=== PATIENT | male | born 1965 | race Caucasian/White ===

== ENCOUNTER 2023-07-31 17:40 | Emergency (ER) | payer OTHER, SELFPAY ==
[2023-07-31 17:44] VITALS: BP 118/93; BMI 26.5
[2023-07-31 17:54] LABS: % Basophils 0.1 % (0-2); % Eosinophils 0.6 % (0-6); % Immature Granulocytes 0.3 % (0-0.5); % Lymphocytes 9.2 % (20.5-51.1); % Monocytes 4.9 % (1.7-9.3); % Neutrophils 84.9 % (42.2-75.2); Absolute Eosinophils 0.1 10^3/uL (0-0.7); Absolute Monocytes 0.5 10^3/uL (0.1-0.6); Absolute Neutrophils 9.2 10^3/uL (1.4-6.5); Hematocrit 49.3 % (39.0-52.0); Hemoglobin 17.7 g/dL (13.0-18.0); Mean Corp Hgb Conc. 35.9 g/dL (33.0-37.0); Mean Corpuscular Hgb 32.4 pg (27.0-31.0); Mean Corpuscular Volume 90.1 fL (80.0-94.0); Mean Platelet Volume 9.5 fL (7.4-10.4); Nucleated Red Blood Cells % 0 % (-); Platelet Count 202 10^3/uL (130-400); Red Blood Cell Count 5.47 10^6/uL (4.70-6.10); Red Cell Dist. Width 12.7 % (11.5-14.5); White Blood Cell Count 10.9 10^3/uL (4.8-10.8)
[2023-07-31 18:07] LABS: ALT (SGPT) 30 U/L (0-50); AST (SGOT) 32 U/L (17-59); Albumin 5.3 g/dl (3.5-5.0); Alkaline Phosphatase 57 U/L (38-126); Blood Urea Nitrogen 16 mg/dl (9-20); Carbon Dioxide 29 mmol/L (22-30); Chloride 101 mmol/L (98-107); Estimated Creatinine Clearance 76 ml/min; Glucose 138 mg/dl (70-99); Lipase 627 U/L (23-300); Potassium 4.2 mmol/L (3.5-5.1); Sodium 141 mmol/L (135-145); Total Bilirubin 1.1 mg/dl (0.2-1.3); Total Protein 7.7 g/dl (6.3-8.2); eGFR > 60.00
[2023-07-31] MEDS: NSS 1000 IV ×2 (18:43→23:08)
--- NOTE | 2023-07-31 20:34 | ED.GENMED ---
History of Present Illness
<Akhil Sanders MD - Last Filed: 07/31/23 23:02>
General
Chief Complaint: Fainting Sensation
Source: patient
Exam Limitations: none
Time Seen by Provider: 07/31/23 19:36
Travel History
Have you had any contact with someone who has COVID-19?: No
Do you have any symptoms of coronavirus? Fever > 100 degrees, chills, cough, shortness of breath, sore throat, loss of taste or smell, muscle aches, or headache?: No
History of Present Illness
History of Present Illness:
58-year-old male became nauseous this morning. While driving became lightheaded sweaty and near syncope. Called 911. Patient was going to sign off but then had a recurring episode of nausea and near syncope. No abdominal pain no significant
headache no chest pain or shortness of breath. Patient has had ongoing diarrhea watery in nature throughout the day. No blood or mucus. No abdominal pain.
Past History
<Akhil Sanders MD - Last Filed: 07/31/23 23:02>
Past History
ED Past Medical History: None
Phy Exam
<Akhil Sanders MD - Last Filed: 07/31/23 23:02>
Physical Exam
Physical Exam:
GENERAL: Alert and oriented in no apparent distress
EYE: Orbits normal.
NECK: Supple, no significant adenopathy.
ENT: Pharynx without erythema
CARDIAC: Regular rate and rhythm without any obvious murmurs.
LUNGS: Clear breath sounds,normal
ABDOMEN: Soft, without focal tenderness or distention
NEUROLOGICAL: Alert and oriented , grossly non-focal
SKIN: Warm and dry, no rash or lesion, no discoloration, skin intact.
MUSCULOSKELETAL: No edema,no deformity.Good color
PSYCH: Normal and appropriate interaction.
Course
<Akhil Sanders MD - Last Filed: 07/31/23 23:02>
Orders/Labs/Results
Orders:
Orders
07/31/23 17:43
Electrocardiogram (*1) Urgent
Reason for Study: Chest Pain
EKG- Treatment ONCE
07/31/23 17:48
Complete Blood Count/With Diff Urgent
Comprehensive Metabolic Panel Urgent
Lipase Urgent
07/31/23 18:45
0.9% Sodium Chloride 1000 ml [Nss] 1,000 ml IV 1,000 mls/hr
07/31/23 19:54
CT Abd/Pel (IV only)-DH only Urgent
Comment:
Reason For Exam: Nausea vomiting syncope elevated lipase
IV Insert/Care/Rem.- Treatment PRN
07/31/23 20:43
Ketorolac [Toradol] 15 mg IV NOW STA
07/31/23 21:41
STOOL [C difficile Antigen & Toxins] Urgent
ERIKA Source: Feces/Stool
Specimen Description:
Date Specimen was Collected: 07/31/23
Time Specimen was Collected: 21:40
Stool Culture Urgent
ERIKA Source: Feces/Stool
Specimen Description:
Date Specimen was Collected: 07/31/23
Time Specimen was Collected: 21:40
07/31/23 22:58
0.9% Sodium Chloride 1000 ml [Nss] 1,000 ml IV BOLUS
Iohexol [Omnipaque] See Protocol PO NOW STA
07/31/23 23:16
Ondansetron Injectable [Zofran] 4 mg .ROUTE .STK-MED ONE
07/31/23 23:17
Ondansetron Injectable [Zofran] 4 mg IV NOW STA
08/01/23 01:00
CT Abd/pel (oral only)-[facility] Only Urgent
Reason For Exam: Hepatic flexure narrowing by CT. Delayed imaging
08/01/23 01:41
Ondansetron Injectable [Zofran] 4 mg .ROUTE .STK-MED ONE
Ondansetron Injectable [Zofran] 4 mg IV NOW STA
Abnormal Lab Results
07/31/23
17:48
WBC 10.9 H 10^3/uL
(4.8-10.8)
MCH 32.4 H pg
(27.0-31.0)
Absolute Neuts (auto) 9.2 H 10^3/uL
(1.4-6.5)
Absolute Lymphs (auto) 1.0 L 10^3/uL
(1.2-3.4)
Neutrophils % 84.9 H %
(42.2-75.2)
Lymphocytes % 9.2 L %
(20.5-51.1)
Glucose 138 H mg/dl
(70-99)
Albumin 5.3 H g/dl
(3.5-5.0)
Lipase 627 H U/L
(23-300)
07/31/23 17:48
07/31/23 17:48
Vital Signs
Initial and Last Documented VS:
Initial Vital Signs
Temp Pulse Resp BP Pulse Ox
98.1 F 80 18 118/93 99
07/31/23 17:44 07/31/23 17:44 07/31/23 17:44 07/31/23 17:44 07/31/23 17:44
Last Documented Vital Signs
Temp Pulse Resp BP Pulse Ox
100.5 F H 91 22 125/70 97
07/31/23 20:41 08/01/23 01:00 08/01/23 01:00 08/01/23 01:00 08/01/23 01:00
<Candice Pineda DO - Last Filed: 08/01/23 03:11>
Orders/Labs/Results
Orders:
Orders
07/31/23 17:43
Electrocardiogram (*1) Urgent
Reason for Study: Chest Pain
EKG- Treatment ONCE
07/31/23 17:48
Complete Blood Count/With Diff Urgent
Comprehensive Metabolic Panel Urgent
Lipase Urgent
07/31/23 18:45
0.9% Sodium Chloride 1000 ml [Nss] 1,000 ml IV 1,000 mls/hr
07/31/23 19:54
CT Abd/Pel (IV only)-[facility] only Urgent
Comment:
Reason For Exam: Nausea vomiting syncope elevated lipase
IV Insert/Care/Rem.- Treatment PRN
07/31/23 20:43
Ketorolac [Toradol] 15 mg IV NOW STA
07/31/23 21:41
STOOL [C difficile Antigen & Toxins] Urgent
ERIKA Source: Feces/Stool
Specimen Description:
Date Specimen was Collected: 07/31/23
Time Specimen was Collected: 21:40
Stool Culture Urgent
ERIKA Source: Feces/Stool
Specimen Description:
Date Specimen was Collected: 07/31/23
Time Specimen was Collected: 21:40
07/31/23 22:58
0.9% Sodium Chloride 1000 ml [Nss] 1,000 ml IV BOLUS
Iohexol [Omnipaque] See Protocol PO NOW STA
07/31/23 23:16
Ondansetron Injectable [Zofran] 4 mg .ROUTE .STK-MED ONE
07/31/23 23:17
Ondansetron Injectable [Zofran] 4 mg IV NOW STA
08/01/23 01:00
CT Abd/pel (oral only)-[facility] Only Urgent
Reason For Exam: Hepatic flexure narrowing by CT. Delayed imaging
08/01/23 01:41
Ondansetron Injectable [Zofran] 4 mg .ROUTE .STK-MED ONE
Ondansetron Injectable [Zofran] 4 mg IV NOW STA
Abnormal Lab Results
07/31/23
17:48
WBC 10.9 H 10^3/uL
(4.8-10.8)
MCH 32.4 H pg
(27.0-31.0)
Absolute Neuts (auto) 9.2 H 10^3/uL
(1.4-6.5)
Absolute Lymphs (auto) 1.0 L 10^3/uL
(1.2-3.4)
Neutrophils % 84.9 H %
(42.2-75.2)
Lymphocytes % 9.2 L %
(20.5-51.1)
Glucose 138 H mg/dl
(70-99)
Albumin 5.3 H g/dl
(3.5-5.0)
Lipase 627 H U/L
(23-300)
07/31/23 17:48
07/31/23 17:48
Vital Signs
Initial and Last Documented VS:
Initial Vital Signs
Temp Pulse Resp BP Pulse Ox
98.1 F 80 18 118/93 99
07/31/23 17:44 07/31/23 17:44 07/31/23 17:44 07/31/23 17:44 07/31/23 17:44
Last Documented Vital Signs
Temp Pulse Resp BP Pulse Ox
100.5 F H 91 22 125/70 97
07/31/23 20:41 08/01/23 01:00 08/01/23 01:00 08/01/23 01:00 08/01/23 01:00
<Akhil Sanders MD - Last Filed: 07/31/23 23:02>
MDM/Problems Addressed
Differential Diagnosis Includes:
Symptoms most consistent with vasovagal near faint syncope related to nausea vomiting and diarrhea. Likely viral syndrome versus food poisoning. Patient is clinically very stable. EKG pending. Patient does not have an elevated lipase not quite
in the pancreatitis range but CT scan will be done for completeness.
<Candice Pineda DO - Last Filed: 08/01/23 03:11>
*Radiology
Radiology exam reviewed: radiology read reviewed
*Pulse Oximetry
Patient hypoxic: no
*Critical Care Note
Total Time (30-74mins, 75-104mins- exclusive of procedures): Not Applicable
<Akhil Sanders MD - Last Filed: 07/31/23 23:02>
Update Note
Update Note:
Others are ill at work with similar symptoms. The near syncope was very likely vasovagal. Nothing to suspect more serious etiology. As for the CT finding of narrowing of the hepatic flexure, I feel it is unlikely this is related to today's
episode. Patient now states other people at work have similar symptoms. However for completeness/peace of mind the CT scan will be done today. He still should follow-up with gastroenterology. A referral was given for them
<Candice Pineda DO - Last Filed: 08/01/23 03:11>
Update Note
Update Note:
Others are ill at work with similar symptoms. The near syncope was very likely vasovagal. Nothing to suspect more serious etiology. As for the CT finding of narrowing of the hepatic flexure, I feel it is unlikely this is related to today's
episode. Patient now states other people at work have similar symptoms. However for completeness/peace of mind the CT scan will be done today. He still should follow-up with gastroenterology. A referral was given for them
08/01/2023 0309 AM
Repeat CAT scan shows oral contrast within the mid small bowel but has not reached the colon. He continues to show decompression of the colonic lumen and or a mild luminal narrowing at the hepatic flexure. There is no definitive evidence of
obstructing mass.
Patient continues to deny abdominal pain. He has had resolution of diarrhea over the past several hours.
He did have return of nausea which has since resolved after second dose of IV Zofran.
He does note several coworkers with similar GI symptoms and with low-grade fever, I suspect acute viral versus foodborne gastroenteritis.
Ultimately will require follow-up with GI for further evaluation/colonoscopy regarding CT findings. Patient has had colonoscopy in the past but admits that this has been quite sometime ago.
A prescription for Zofran ODT has been sent to his pharmacy.
Recommend limiting diet to clear liquids over the next 1 to 2 days and then slowly advance as tolerated.
Return precautions discussed.
ED Attending Note
<Akhil Sanders MD - Last Filed: 07/31/23 23:02>
-
Portions of this chart may have been created with voice recognition software.� Occasional wrong word or��sound alike� substitutions may have occurred due to the inherent limitations of voice recognition software.
Discharge Plan
Departure
Patient Disposition: Home (Routine Discharge)
Date of Disposition: 08/01/23
Time of Disposition: 03:00
Patient with high blood pressure during this ER visit?: No
Condition: Good
Discharge Problem:
Near syncope, Vomiting diarrhea/enteritis
Instructions: Near Fainting (DC), Acute Diarrhea, Acute Nausea and Vomiting
Prescriptions:
New
ondansetron 4 mg tablet,disintegrating
4 mg PO QID PRN (Reason: nausea and vomiting) Qty: 20 0RF
Referrals:
Donnie Diaz DO [Family Provider] - Follow up in 2-3 days
Mariella Taylor MD [Active] - Next open appointment
Activity Restrictions/Additional Instructions:
Limit your diet to just clear liquids over the next 24 to 48 hours then slowly advance to soft bland foods as tolerated.
Remain home from work until fever free for 24 hours.
We recommend follow-up with gastroenterology for further evaluation of findings on CAT scan showing mild narrowing of your large bowel.
Interventions
Interventions:
*Risk Screen - Suicide Last Done: 07/31/23 17:44
*General Assessment Last Done: 07/31/23 20:27
*Neglect/Abuse Screening Last Done: 07/31/23 17:44
ED- Fall Risk Assessment Last Done: 07/31/23 17:44
*ED COVID-19 Vaccine History Last Done: 07/31/23 20:27
ED- Cardiac Assessment Last Done: 07/31/23 20:38
ED- Neurological Assessment Last Done: 07/31/23 20:38
Discharge Date and Time
Print Language: BANGLADESHI
[2023-07-31 20:37] VITALS: BP 145/80
[2023-07-31] MEDS: TORADOL 15 MG IV (20:50)
[2023-07-31] MEDS: NSS IV ×4 (20:52→22:46)
[2023-07-31 21:00] VITALS: BP 123/81
[2023-07-31 22:00] VITALS: BP 133/68
[2023-07-31 23:00] VITALS: BP 141/77
[2023-07-31] MEDS: OMNIPAQUE 50 ML PO (23:07)
[2023-07-31] MEDS: ZOFRAN 4 MG IV (23:17)
[2023-08-01] VITALS: BP 128/77
[2023-08-01] MEDS: NSS IV ×4 (00:22→03:03)
[2023-08-01 01:00] VITALS: BP 125/70
[2023-08-01] MEDS: ZOFRAN 4 MG IV (01:42)
[2023-08-01 02:46] VITALS: BP 113/68
[2023-08-01 03:00] VITALS: BP 133/81
== END 2023-08-01 03:29 | disposition home or self-care (01) ==
LOC: EMR 17:40
PROVIDERS: Emergency Medicine; EMERGENCY PHYSICIAN Emergency Medicine; FAMILY PHYSICIAN Family Medicine
DX: R55 Syncope and collapse (principal); K52.9 Noninfective gastroenteritis and colitis, unspecified; R19.7 Diarrhea, unspecified; R11.2 Nausea with vomiting, unspecified; Z88.0 Allergy status to penicillin
CPT/HCPCS: 99285; 96375; 96361 ×2; 96374; 96376; 74176; 74177; 80053; 83690; 85025; 87045; 87046; 87324; 87427; 87449; 93005; Q9967

== ENCOUNTER 2024-01-29 06:19 | Day surgery (SDC) | payer OTHER, SELFPAY | END 2024-01-29 13:57 | disposition home or self-care (01) | LOC: GI 06:19 | PROVIDERS: ATTENDING PHYSICIAN Internal Medicine Gastroenterology | DX: D12.4 Benign neoplasm of descending colon (principal); K63.5 Polyp of colon; K57.30 Diverticulosis of large intestine without perforation or abscess without bleeding; K64.8 Other hemorrhoids; R93.5 Abnormal findings on diagnostic imaging of other abdominal regions, including retroperitoneum | CPT/HCPCS: 45385; 88305 ==